=== PATIENT | female | born 1990 | race Caucasian/White ===

== ENCOUNTER → 2023-11-01 10:42 | Outpatient (BNVA) | payer MEDICARE, SELFPAY | PROVIDERS: PCP Registered Nurse; Referring Provider Psychiatry & Neurology Neurology; Visit Provider Psychiatry & Neurology Neurology | DX: G40.919 Epilepsy, unspecified, intractable, without status epilepticus (principal); R51.9 Headache, unspecified | CPT/HCPCS: 99203 ==

== ENCOUNTER → 2023-11-16 10:35 | Outpatient (BNVA) | payer MEDICARE, SELFPAY | PROVIDERS: PCP Registered Nurse; Visit Provider Psychiatry & Neurology Neurology | DX: G40.919 Epilepsy, unspecified, intractable, without status epilepticus (principal); R51.9 Headache, unspecified | CPT/HCPCS: 95813 ==

== ENCOUNTER 2023-12-21 09:36 | Outpatient (CLI) | payer MEDICARE, SELFPAY ==
--- NOTE | 2023-12-21 11:00 | MR_ITS ---
WS: [id number] MRI HEAD WITH CONTRAST TECHNIQUE: Sagittal T1, T2 axial, T2 axial FLAIR, axial susceptibility weighted imaging, axial diffus ion weighted images, and coronal T2 images were obtained. Pre and post-T1 axial and post T1 coronal i mages. ADC and FSPGR images. CLINICAL INFORMATION: G40.919 - Epilepsy, unspecified, intractable, without sta... COMPARISON: None. FINDINGS: No evidence of restricted diffusion to suggest acute ischemia. Ventricular system and basal cisterns are patent. Normal posterior fossa. Normal vascular flow voids at the skull base. No extra-axial flui d collections. No evidence of mass or mass effect. Mastoid air cells are well aerated. Partial opacif ication of the LEFT maxillary sinus. Normal posterior nasopharynx. No hemosiderin on susceptibility-weighted images. Normal optic chiasm and pituitary infundibulum. Nor mal cavernous sinuses and Meckel's cave. Temporal lobes and hippocampal formations are normal in appe arance. No evidence of signal abnormality in the mesial temporal lobes. No abnormal gadolinium enhancement. Normal dural venous sinuses. Incidental slightly low-lying cerebe llar tonsils. IMPRESSION: 1. No evidence of restricted diffusion to suggest acute ischemia. 2. No suspicious intracranial signal abnormalities. 3. Temporal lobes and hippocampal formations are normal in appearance. No signal abnormalities in th e mesial temporal lobes. 4. No abnormal gadolinium enhancement. 5. Partial opacification of the LEFT maxillary sinus. 6. No hemosiderin on the susceptibility weighted images. 7. Incidental cerebellar tonsillar ectopia.
[2023-12-21] MEDS: gadobenate dimeglumine 20 mL vial IV (11:43)
== END 2023-12-21 09:37 | disposition home or self-care (01) ==
PROVIDERS: PCP Registered Nurse; Visit Provider Psychiatry & Neurology Neurology
DX: G40.919 Epilepsy, unspecified, intractable, without status epilepticus (principal); R51.9 Headache, unspecified
CPT/HCPCS: 70553; A9577

== ENCOUNTER → 2024-01-23 14:36 | Outpatient (BNVA) | payer MEDICARE, SELFPAY | PROVIDERS: PCP Registered Nurse; Visit Provider Psychiatry & Neurology Neurology | DX: G40.919 Epilepsy, unspecified, intractable, without status epilepticus (principal); R51.9 Headache, unspecified | CPT/HCPCS: 99212 ==

== ENCOUNTER → 2024-06-11 13:59 | Outpatient (BNVA) | payer MEDICARE, SELFPAY | PROVIDERS: PCP Registered Nurse; Visit Provider Psychiatry & Neurology Neurology | DX: G40.919 Epilepsy, unspecified, intractable, without status epilepticus (principal); R51.9 Headache, unspecified; G40.909 Epilepsy, unspecified, not intractable, without status epilepticus | CPT/HCPCS: 99212; 99213 ==